=== PATIENT | male | born 2005 | race Caucasian/White ===

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

== ENCOUNTER 2024-09-22 17:56 | Inpatient (IN) ==
--- NOTE | 2024-09-22 18:40 | Emergency Department Note ---
Impression & Plan Suicidal ideation, Delusions ED Provider Note NAME: VANESSA GRECO AGE: 19 SEX: M : 2005 ARRIVES VIA: Walk-In INFORMANT: [Patient][girlfriend] ED PROVIDER(S): [Fili Casiano MD] CHIEF COMPLAINT: Mental health evaluation HISTORY OF PRESENT ILLNESS: The patient is a 19-year-old male who presents to the ER with suicidal ideation. The patient states that he has been suicidal in the past. He feels overwhelmed by his life in general. He has financial stress, stress with his living situation, he is stressed at his job. He states that he has had multiple friends who have committed suicide and, this makes him think about suicide. He did try 1 time to hang himself while in high school. He had a plan to cut himself with a knife. As per the patient's girlfriend, the patient has been somewhat delusional. He has been telling stories about people dying in his arms and about being in physical altercations and, none of these events occurred. The patient is currently voluntary. He is not on psychiatric meds. He has some reflux issues but is not currently taking anything for reflux. PMHx/PSHx/Social Hx: See Below PHYSICAL EXAM: GENERAL: Patient is in no acute distress. HEENT: No acute trauma, normocephalic atraumatic, mucous membranes moist, no nasal congestion. NECK: No stridor, no adenopathy, no meningismus, trachea is midline. LUNGS: Clear to auscultation bilaterally, no wheeze, no rhonchi, breath sounds equal. HEART: Without murmurs gallops or rubs, regular rate and rhythm. ABDOMEN: Soft, nontender, no peritonitis. EXTREMITIES: No cyanosis, full range of motion of all the joints without pain or difficulty. NEUROLOGIC: Oriented x 3, no acute motor or sensory deficits, no focal weakness. SKIN: No jaundice, no diaphoresis. Psychiatric: The patient has a somewhat flattened affect. He is voluntary, he admits to suicidal ideation with a plan to cut himself. DIFFERENTIAL DIAGNOSIS: Suicidality, psychosis, hallucinations, delusions, thyroid disorder, all others. EMERGENCY DEPARTMENT PROCEDURES: MEDICAL DECISION MAKING: There is no leukocytosis or concerning anemia. There is a normal platelet count. No renal failure or significant electrolyte abnormality. No concerning liver enzyme elevation. Patient appears to be in a euthyroid state. Urinalysis does not show findings of infection. Aspirin, Tylenol and alcohol levels are undetectable. Urine tox is positive for marijuana. COVID test is negative. On exam, the patient did admit to some suicidal ideation with a plan to harm himself. He had a flattened affect. He was voluntary. Patient was felt medically clear. He was seen by psychiatry case management. The patient was felt appropriate for our hospital's psychiatric services, [facility] The patient has been accepted to [facility] voluntarily. The appropriate paperwork was completed and signed. Patient has been very cooperative during his stay in the ED. Prior/Outside records/notes reviewed: None Imaging/x-ray results per my interpretation: Chronic Medical/Social conditions affecting care: None Care/Management discussed with: Psychiatry case management. Level of care consideration(s): After review of the information above and other included data: --I believe the patient requires escalation of care to inpatient voluntary psychiatric admission DISPOSITION: Voluntary psychiatric admission to [facility] Past Med/Surg History Problem List (Updated 09/23/24 @ 01:50 by Fili Casiano MD) Delusions (Acute) Suicidal ideation (Acute) Pain of right forearm (Acute) Injury of right wrist (Acute) Acute pain of right wrist (Acute) Scrotal pain Testicular discomfort Varicocele (Acute) Cyst of epididymis determined by ultrasound (Acute) Chronic rhinitis Left varicocele Hypothyroidism Arthralgia Anxiety and depression H/O plastic surgery Gynecomastia surgery performed at [facility] 07/13/2022 Eosinophilic esophagitis (Chronic) Vomiting (Acute) Abdominal pain (Acute) Abdominal pain (Acute) Abdominal pain (Acute) Abdominal wall contusion (Acute) Abdominal pain (Acute) Mesenteric lymphadenitis (Chronic) Medical History History of seizure as reports first 5 days of - has not had seizures since History of blood clots reports found in lower leg, approx. age 16-17, no blood thinners, told to elevate leg Chronic rhinitis History of anesthesia reaction "it takes just a little bit more to get me to sleep" pt. also reports waking up during breast surgery Cyst of epididymis determined by ultrasound Eosinophilic esophagitis Varicocele Anxiety and depression no meds Hypothyroidism Surgical History (Updated 10/21/24 @ 08:03 by Adilene Momin) Hx of wisdom tooth extraction Hx of tonsillectomy H/O bilateral breast reduction surgery Gynecomastia surgery performed at [facility] 07/13/2022 Family History Father Diabetes Other Colorectal cancer Denies family history of Prostate cancer Myocardial infarction Breast cancer Lung cancer Social History Smoking Status: Never smoker Second Hand Exposure: No; Do You Dip or Chew Tobacco: No; Hx Alcohol Use: No Hx Substance Use: No Preferred Language: Georgian Communication Ability: Effective Visual Impairment: Limited Hearing Ability: Normal 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 Beliefs That Will Affect Care: None marital status: Single Current Living Situation: Significant Other current occupational status: unemployed How many Children do You have: 0 Feels Safe at Home: Yes Childhood Exposure to Second-Hand Smoke: Yes Diet: regular caffeine: No Dental Care, Regularly: No Physical Activity Frequency: Does not Exercise Seatbelt Use: always Sunscreen Use: Yes Gender Identity: Male Assistive Devices: Glasses Allergies Allergies Allergy/AdvReac Type Severity Reaction Status Date / Time cat dander Allergy Severe Anaphylaxis Verified 07/08/24 14:05 dog dander Allergy Intermediate ITCHY Verified 07/08/24 14:05 EYES, SNEEZING, CONGESTION latex Allergy Intermediate SKIN PEELS Verified 07/08/24 14:05 OFF vancomycin Allergy Intermediate RED MAN Verified 07/08/24 14:05 SYNDROME omeprazole AdvReac Intermediate Vomiting Verified 07/08/24 14:05 guinea pig Allergy Severe Anaphylaxis Uncoded 07/08/24 14:05 HORSE HAIR Allergy Intermediate ITCHY Uncoded 07/08/24 14:05 EYES, SNEEZING, CONGESTION [place] Allergy Unknown POSITIVE Uncoded 07/08/24 14:05 ALLERGY TEST [place] Allergy Unknown POSITIVE Uncoded 07/08/24 14:05 ALLERGY TEST Home Meds Previous Rx's Medication Instructions Recorded epinephrine 0.3 mg/0.3 mL 0.3 mg (0.3 mL) IM DIRECTED PRN 01/30/24 injection, auto-injector (EpiPen) SEVERE ALLERGIC REACTION #2 ea Results & Data (ED) Vital Signs Vital Signs - 24 hr 09/22/24 18:01 09/22/24 20:31 09/22/24 22:00 Temperature 36.6 C Temperature Source Temporal Artery Scan Pulse Rate 95 H Pulse Rate [Finger] 90 89 Respiratory Rate 18 16 18 Respiratory Effort / Characteristics Non-Labored Spontaneous Non-Labored Spontaneous Non-Labored Spontaneous Respiratory Depth Normal Normal Normal Respiratory Pattern Regular Regular Regular Blood Pressure 155/102 H Blood Pressure [Right Arm] 137/73 123/73 Blood Pressure Mean 119 Blood Pressure Mean [Right Arm] 94 89 Blood Pressure Position Sitting Blood Pressure Position [Right Arm] Semi-fowlers Semi-fowlers Pulse Oximetry 97 99 97 Oxygen Delivery Method Room Air Room Air Room Air Sepsis Recent Fever Within 48 Hours No Sepsis New/Unexplained Change in Mental Status N/A Sepsis Action Taken by Nursing No Action Required 09/23/24 00:00 Temperature Temperature Source Pulse Rate Pulse Rate [Finger] 83 Respiratory Rate 16 Respiratory Effort / Characteristics Respiratory Depth Respiratory Pattern Blood Pressure Blood Pressure [Right Arm] 119/70 Blood Pressure Mean Blood Pressure Mean [Right Arm] 86 Blood Pressure Position Blood Pressure Position [Right Arm] Pulse Oximetry 98 Oxygen Delivery Method Sepsis Recent Fever Within 48 Hours Sepsis New/Unexplained Change in Mental Status Sepsis Action Taken by Shelter Medications Current Medication List: was personally reviewed by me Laboratory Data Attestation: I reviewed the patient's lab results. 09/22/24 18:36 09/22/24 18:36 Lab Results 09/22/24 Range/Units 18:36 WBC 9.58 (4.8-10.8) K/ul RBC 5.39 (4.70-6.10) M/uL Hgb 15.9 (14.0-18.0) g/dl Hct 45.1 (42.0-52.0) % MCV 83.7 (80.0-100.0) fL MCH 29.5 (25.0-34.0) pg MCHC 35.3 (32.0-36.0) g/dL RDW Std Deviation 38.7 (36.4-46.3) fL RDW Coeff of [place] 12.8 (11.5-14.5) % Plt Count 246 (130-400) K/uL MPV 11.0 (9.4-12.4) fL Immature Gran % (Auto) 1.7 % Neut % (Auto) 61.9 % Lymph % (Auto) 26.0 % [place] % (Auto) 5.7 % Eos % (Auto) 4.1 % Baso % (Auto) 0.6 % Neut # (Auto) 5.93 (1.40-6.50) K/uL Lymph # (Auto) 2.49 (1.20-3.40) K/uL [place] # (Auto) 0.55 (0.11-0.59) K/uL Eos # (Auto) 0.39 (0.00-0.50) K/uL Baso # (Auto) 0.06 (0.00-0.20) K/uL Immature Gran # (Auto) 0.16 (0.01-0.20) K/uL Sodium 140 (136-145) mmol/L Potassium 4.0 (3.5-5.1) mmol/L Chloride 108 H (98-107) mmol/L Carbon Dioxide 25 (21-32) mmol/L Anion Gap 7 (3-11) BUN 12 (6-23) mg/dl Creatinine 0.80 (0.6-1.4) mg/dl Est Cr Clr Drug Dosing 225.8 ml/min eGFR 129.93 BUN/Creatinine Ratio 15.0 (10-20) Glucose 88 (70-99(Fasting)) mg/dl Calcium 9.2 (8.6-10.3) mg/dl Total Bilirubin 0.4 (0.2-1.0) mg/dl AST 32 (13-39) U/L ALT 43 (7-52) U/L Alkaline Phosphatase 108 H (34-104) U/L Total Protein 6.9 (6.0-8.3) gm/dl Albumin 4.6 (3.4-5.0) gm/dl Globulin 2.3 L (2.5-4.0) gm/dl Albumin/Globulin Ratio 2.0 (0.9-2) TSH 3.093 (0.300-4.500) uIu/ml Urine Color Yellow Urine Appearance Clear (Clear) Urine pH 6.0 (4.5-7.5) Ur Specific [place] 1.025 (1.000-1.030) Urine Protein Negative (Negative) Urine Glucose (UA) Negative (Negative) Urine Ketones Negative (Negative) Urine Blood Negative (Negative) Urine Nitrite Negative (Negative) Urine Bilirubin Negative (Negative) Urine Urobilinogen Negative (Negative) Ur Leukocyte Esterase Negative (Negative) Salicylates < 3.0 L (3.0-30) mg/dl Urine Opiates Screen Neg (Neg) Ur Methadone, Qual Neg (Neg) Urine Fentanyl Screen Neg (Neg) Acetaminophen < 3 L (10-30) ug/ml Urine Barbiturates Neg (Neg) Ur Phencyclidine (PCP) Neg (Neg) U Amphetamin/Meth Scrn Neg (Neg) MDMA (Ecstasy) Screen Neg (Neg) U Benzodiazepines Scrn Neg (Neg) Ur Cocaine Metabolite Neg (Neg) U Marijuana (THC) Screen Pos H (Neg) Ethyl Alcohol mg/dL < 10.0 (<10.0) mg/dl SARS-CoV-2, RNA, NAAT NEGATIVE (NEGATIVE) Discharge Plan Visit Data Chief Complaint: Mental Health Evaluation Stated Complaint: MENTAL HEALTH EVALUATION ED Provider: Fili Casiano Discharge Problem: Suicidal ideation, Delusions Patient Disposition: Admitted As Inpatient Condition: Good Forms Stand Alone Forms: My [facility], Suicide Prevention Resources Prescriptions Prescriptions: No Action epinephrine [EpiPen] 0.3 mg/0.3 mL auto-injector 0.3 mg IM DIRECTED PRN (Reason: SEVERE ALLERGIC REACTION) Qty: 2 [facility] Referrals Referrals: Nirmal Draper DO [Primary Care Provider] -
[2024-09-22 18:51] LABS: Basophils # (auto) 0.06 K/uL (0.00-0.20); Basophils % (auto) 0.6 %; Eosinophils # (auto) 0.39 K/uL (0.00-0.50); Eosinophils % (auto) 4.1 %; Hematocrit (blood only) 45.1 % (42.0-52.0); Hemoglobin 15.9 g/dl (14.0-18.0); Immature Granulocytes # (auto) 0.16 K/uL (0.01-0.20); Immature Granulocytes % (auto) 1.7 %; Lymphocytes # (auto) 2.49 K/uL (1.20-3.40); Mean Corpuscular Hemoglobin 29.5 pg (25.0-34.0); Mean Corpuscular Hgb Conc 35.3 g/dL (32.0-36.0); Mean Corpuscular Volume 83.7 fL (80.0-100.0); Monocytes # (auto) 0.55 K/uL (0.11-0.59); Monocytes % (auto) 5.7 %; Neutrophils # (auto) 5.93 K/uL (1.40-6.50); Neutrophils % (auto) 61.9 %; Platelet Count 246 K/uL (130-400); RDW Coefficient of Variation 12.8 % (11.5-14.5); RDW Standard Deviation 38.7 fL (36.4-46.3); Red Blood Count 5.39 M/uL (4.70-6.10); White Blood Count 9.58 K/ul (4.8-10.8)
[2024-09-22 19:04] LABS: Appearance Urine Clear (Clear); Bilirubin Urine Negative (Negative); Blood Urine Negative (Negative); Color Urine Yellow; Glucose Urine UA Negative (Negative); Ketones Urine Negative (Negative); Leukocyte Esterase Urine Negative (Negative); Nitrite Urine Negative (Negative); Protein Urine Negative (Negative); Specific Gravity Urine 1.025 (1.000-1.030); Urobilinogen Urine Negative (Negative)
[2024-09-22 19:11] LABS: Albumin Level 4.6 gm/dl (3.4-5.0); Bilirubin,Total 0.4 mg/dl (0.2-1.0); Calcium 9.2 mg/dl (8.6-10.3); Creatinine Clr Calc Pharmacy 225.8 ml/min; Globulin 2.3 gm/dl (2.5-4.0); Total Protein 6.9 gm/dl (6.0-8.3)
[2024-09-22 19:14] LABS: Acetaminophen < 3 ug/ml (10-30); Salicylate < 3.0 mg/dl (3.0-30)
[2024-09-22 19:26] LABS: Thyroid Stimulating Hormone 3.093 uIu/ml (0.300-4.500)
[2024-09-22 19:27] LABS: Amphetamines+Metham, Urine Neg (Neg); Barbiturates, Urine Neg (Neg); Benzodiazepine, Urine Neg (Neg); Cocaine, Urine Neg (Neg); Fentanyl, Urine Neg (Neg); MDMA (Ecstacy), Urine Neg (Neg); Marijuana, Urine Pos (Neg); Methadone, Urine Neg (Neg); Opiate, Urine Neg (Neg); Phencyclidine, Urine Neg (Neg)
[2024-09-23] MEDS ORDERED: ACETAMINOPHEN 325 MG TAB PO PRN (02:29)
[2024-09-23] MEDS ORDERED: MAGNESIUM HYDROXIDE SUSP 30 ML UDC PO PRN (02:29)
[2024-09-23] MEDS ORDERED: BISMUTH SUBSALICYLATE 262 MG CHEW PO PRN (02:29)
[2024-09-23] MEDS ORDERED: hydrOXYzine HCl 25 MG TAB PO PRN (02:29)
[2024-09-23] MEDS ORDERED: SODIUM CHLORIDE 0.65% NA SOLN 45 ML (OCEAN) PRN (02:29)
[2024-09-23] MEDS ORDERED: ALUMINUM/MAGNESIUM SUSP 30 ML UDC PO PRN (02:29)
[2024-09-23] MEDS ORDERED: OLANZapine 5 MG TABLET PO PRN (02:58)
--- NOTE | 2024-09-23 09:17 | History & Physical ---
Date of Service September 23, 2024 Impression / Recommendations Impression VANESSA GRECO is a 19-year-old man who currently lives in [place] with his girlfriend and her parents, has a history of depression, and was admitted on 09/23/24 02:00 on a 201 commitment for SI with plan to cut himself. Diagnostically consistent with major depressive disorder with possible psychotic features vs bipolar affective disorder with current depressive episode vs borderline personality disorder as well as generalized anxiety disorder, and post-traumatic stress disorder (PTSD) which may be causing depersonalization and periods of hallucinations. He also reports issues with impulsivity and path ological lying which may be related to underlying trauma responses. Discussed medication treatment options in detail. Discussed risks, benefits and alternatives. Patient consented to clonidine at bedtime to target multiple symptoms including off-label for anxiety, sleep disturbances, trauma-related nightmares, and impulsivity. Reviewed side effects including but not limited to drowsiness and orthostatic hypotension/low BP/syncope. Treatment plan includes completion of symptom questionnaires for further assessment of mood and psychotic symptoms. Will obtain release of information from [employer] to review previous medication trials. Considering mood stabilizer or antipsychotic medication pending further evaluation, given previous adverse response to Zoloft and presence of psychotic symptoms. Continue inpatient psychiatric hospitalization for safety and medication initiation. Consider outpatient intensive outpatient program with focus on emotional regulation, anxiety management and potential trauma-focused therapy. Overall I spent a total of 75 minutes for this admission including review of chart records, review of labwork, direct evaluation of the patient, counseling the patient, ordering medication, risk assessment, discussion with the psychiatric liason RN and documentation in the electronic health record. (1) Depression with suicidal ideation: (2) Post traumatic stress disorder (PTSD): (3) Night terrors: (4) MAHENDRA (generalized anxiety disorder): Plan 09/23/2024: The patient was admitted to the [facility] ([facility] inpatient mental health unit) on q15 min checks (behavioral with suicide precautions) for safety. The patient will participate in group, recreational, and milieu therapies and will be offered additional individual and family sessions as clinically appropriate. -start clonidine 0.1mg HS -Symptom questionnaires: Mood Disorder Q, Fior BPD, PHQ-9, MAHENDRA-7, JORGE Inventory Assets Strengths: supportive relationships, willing to get treatment Needs: safety and stabilization, medication adjustment, additional coping skills, increased outpatient services Suicide Risk Level Suicide Risk Level: High-Moderate (q15 min suicide checks) (SI with plan and depression prior to admission but feels safe in the hospital and feels able to ask for support) Risk Factors Assessment Male: Yes : Yes Do You Have Access To A Gun?: No (guns locked in the house and he doesn't know the location only gf father) Health Problems: No Mental Health Diagnoses: Yes Substance Use Disorders: No Previous Attempt: Yes Family History of Suicide: Yes Previous Psychiatric Hospitalization: No Hopelessness: Yes Protective Factors Assessment Employed: Yes ([employer]) Stable Relationships: Yes Supportive Family: No Psychiatric History Identifying Data VANESSA GRECO is a 19-year-old man who currently lives in [place] with his girlfriend and her parents, has a history of depression, and was admitted on 09/23/24 02:00 on a 201 commitment for SI with plan to cut himself. Chief Complaint "I got really defensive". History of Present Illness He presents for psychiatric admission for worsening depression and SI with plan of cutting himself and auditory and visual hallucinations in the context of multiple psychosocial stressors including his girlfriend and her mother suggesting he move out and get his own place, reminding him of past trauma with his parents. He notes this was very triggering because "I felt unwanted" due to experiences with his parents in the past. States he "shuts down" emotionally when he feels overwhelmed and lately has been feeling "the same but worse" such as when he has nearly attempted suicide via cutting himself in the past after a friend by suicide. He continues to have SI and endorses depressive symptoms over the last few months which has been worsening. He reports a recent exacerbation of depressive symptoms over the past few months, describing feeling like he's in "purgatory" or on "autopilot." He experiences depersonalization, feeling outside his body and observing himself. He endorses depressive symptoms including tearfulness, anhedonia, decreased motivation, guilt, helplessness, low energy, and difficulty concentrating. His appetite is "normal-alli," but his sleep is disturbed by nightly nightmares. He also reports anxiety symptoms including excessive worry, restlessness, irritability, and trouble concentrating. He describes paranoid thoughts, often worrying about his girlfriend cheating or misinterpreting innocuous situations. He experiences auditory hallucinations of his own voice repeating insecurities, his parents' voices from past arguments, and his father's voice telling him to hurt himself. Visual hallucinations typically involve seeing men, which he associates with past trauma, and occasionally his father. He also reports seeing unrelated, unexplainable visions such as hands coming out of mud during a camping trip. He notes rapid mood changes and increased irritability. He experiences periods of heightened energy lasting 2-3 hours but has never gone for extended nights without sleep. He admits to lying impulsively, sometimes believing the lies afterward, which causes him distress. He endorses PTSD symptoms including intrusive memories/flashbacks, mood changes- anger/shame/numbness/detachment, hypervigilance, emotional lability, decreased concentration, decreased sleep/night terrors. He has previously been prescribed Zoloft at [place], but reports it was "awful" and "just heightens everything." He is not currently prescribed any psychiatric medications. Psychiatric ROS notable for no current nor history of symptoms of OCD nor eating disorder. History of self-harm via cutting, most recently 1.5 months ago. Sometimes can go a few days with poor sleep, when he's hearing things or seeing things and will have really high energy ("like I drank tons of caffeine") and this can last 2.5-3 hours and "then I start crashing back to my blah-ness". Past Psychiatric History Current Psychiatric Diagnosis: PTSD, anxiety, depression Outpatient Services: none Previous Psych Admissions: none Do You Have Access To A Gun?: No (guns locked in the house and he doesn't know the location only gf father) History of Previous Suicide Attempt: Yes Describe Attempts in the Past: 6-7, including by hanging Past Medication Trials: Zoloft-heightened everything, made things worse -"something for ADHD" Allergies Allergy/AdvReac Type Severity Reaction Status Date / Time cat dander Allergy Severe Anaphylaxis Verified 07/08/24 14:05 dog dander Allergy Intermediate ITCHY Verified 07/08/24 14:05 EYES, SNEEZING, CONGESTION latex Allergy Intermediate SKIN PEELS Verified 07/08/24 14:05 OFF vancomycin Allergy Intermediate RED MAN Verified 07/08/24 14:05 SYNDROME horse dander Allergy Unknown Itching, Verified 09/23/24 02:36 sneezing, congestion oak Allergy Unknown oak tree Verified 09/23/24 02:36 allergy positive on testing tree and shrub pollen Allergy Unknown positive Verified 09/23/24 02:36 allergy testing omeprazole AdvReac Intermediate Vomiting Verified 07/08/24 14:05 guinea pig Allergy Severe Anaphylaxis Uncoded 07/08/24 14:05 Home Medications Medication Instructions Recorded Confirmed Type epinephrine 0.3 mg/0.3 mL 0.3 mg (0.3 mL) IM DIRECTED PRN 01/30/24 09/22/24 Rx injection, auto-injector (EpiPen) SEVERE ALLERGIC REACTION #2 ea Family History Family History of: Depression, Anxiety, Bipolar and Suicide Completion (multiple friends ) Family Mental Health History Comment: Mom- Bipolar 1, anxiety, depression Dad- Bipolar, depression, anger Older brother- Unknown Alcohol History Hx of Alcohol Use Over the Past 12 Months: Yes (Rarely. 3 drinks per occasion) AUDIT Total Score: 2 Smoking Use Have You Smoked or Used Tobacco Products in the Last 30 Days: No Smoking Status: Former smoker Substance History Hx of Prescription Med Misuse Over the Past 12 Months: No Hx of Over the Counter Med Misuse Over the Past 12 Months: No Hx of Inhalent Misuse Over the Past 12 Months: No Hx of Organic Substance Use Over the Past 12 Months: Yes (Marijuana. 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 Other Beliefs That Will Affect Care: None Current Legal Problems: No Hx Legal Problems: No Hx Traumatic Life Events: Yes Patient History Medical History History of seizure as reports first 5 days of - has not had seizures since History of blood clots reports found in lower leg, approx. age 16-17, no blood thinners, told to elevate leg Chronic rhinitis History of anesthesia reaction "it takes just a little bit more to get me to sleep" pt. also reports waking up during breast surgery Cyst of epididymis determined by ultrasound Eosinophilic esophagitis Varicocele Anxiety and depression no meds Hypothyroidism Surgical History Hx of wisdom tooth extraction Hx of tonsillectomy H/O bilateral breast reduction surgery Gynecomastia surgery performed at [facility] 07/13/2022 Family History Father Diabetes Other Colorectal cancer Denies family history of Prostate cancer Myocardial infarction Breast cancer Lung cancer Social History Smoking Status: Former smoker Second Hand Exposure: No; Do You Dip or Chew Tobacco: No; Hx Alcohol Use: No Hx Substance Use: No Preferred Language: Syrian Communication Ability: Effective Visual Impairment: Limited Hearing Ability: Normal Director Television Required: No Beliefs That Will Affect Care: None marital status: Single Current Living Situation: Significant Other current occupational status: unemployed How many Children do You have: 0 Feels Safe at Home: Yes Childhood Exposure to Second-Hand Smoke: Yes Diet: regular caffeine: No Dental Care, Regularly: No Physical Activity Frequency: Does not Exercise Seatbelt Use: always Sunscreen Use: Yes Gender Identity: Male Assistive Devices: Glasses Review of Systems Review of Systems: All systems reviewed & are unremarkable except as noted in HPI & below Physical Exam Psychiatric: Orientation: alert and oriented x 3 Apperance: appropriately dressed and appropriately groomed Eye Contact: good eye contact Motor Behavior: no abnormal motor movements Speech: normal rate/rhythm/volume of speech Affect: + depressed affect and + constricted affect Mood: + depressed mood and + anxious mood Thought Process: + circumstantial thought process Thought Content: reality based without delusions Suicidal Thoughts: denies suicidal plan and denies suicidal intent; + reports suicidal thoughts Homicidal Thoughts: denies homicidal thoughts Hallucinations: no auditory hallucinations and no visual hallucinations Cognition: recent memory grossly intact, remote memory grossly intact, attention grossly intact and language grossly intact Estimated Intelligence: consistent with education level Insight: + fair insight Judgment: + fair judgement Vital Signs (Past 24 Hours): Last Vital Signs Temp 36.8 C 09/23/24 03:40 Pulse 81 09/23/24 03:40 Resp 18 09/23/24 03:40 BP 134/85 09/23/24 03:40 Pulse Ox 99 09/23/24 03:40 O2 Del Method Room Air 09/23/24 03:40 Exam Statement: A physical exam was performed in the ED by Dr. Casiano for the purposes of medical clearance. I accept that physical as correct and adequate for the purposes of the inpatient physical exam. Results & Data ([facility]) Laboratory Results Laboratory Results - last 24 hr 09/22/24 18:36 WBC 9.58 RBC 5.39 Hgb 15.9 Hct 45.1 MCV 83.7 MCH 29.5 MCHC 35.3 RDW Std Deviation 38.7 RDW Coeff of [place] 12.8 Plt Count 246 MPV 11.0 Immature Gran % (Auto) 1.7 Neut % (Auto) 61.9 Lymph % (Auto) 26.0 [place] % (Auto) 5.7 Eos % (Auto) 4.1 Baso % (Auto) 0.6 Neut # (Auto) 5.93 Lymph # (Auto) 2.49 [place] # (Auto) 0.55 Eos # (Auto) 0.39 Baso # (Auto) 0.06 Immature Gran # (Auto) 0.16 Sodium 140 Potassium 4.0 Chloride 108 H Carbon Dioxide 25 Anion Gap 7 BUN 12 Creatinine 0.80 Est Cr Clr Drug Dosing 225.8 eGFR 129.93 BUN/Creatinine Ratio 15.0 Glucose 88 Calcium 9.2 Total Bilirubin 0.4 AST 32 ALT 43 Alkaline Phosphatase 108 H Total Protein 6.9 Albumin 4.6 Globulin 2.3 L Albumin/Globulin Ratio 2.0 TSH 3.093 Urine Color Yellow Urine Appearance Clear Urine pH 6.0 Ur Specific [place] 1.025 Urine Protein Negative Urine Glucose (UA) Negative Urine Ketones Negative Urine Blood Negative Urine Nitrite Negative Urine Bilirubin Negative Urine Urobilinogen Negative Ur Leukocyte Esterase Negative Salicylates < 3.0 L Urine Opiates Screen Neg Ur Methadone, Qual Neg Urine Fentanyl Screen Neg Acetaminophen < 3 L Urine Barbiturates Neg Ur Phencyclidine (PCP) Neg U Amphetamin/Meth Scrn Neg MDMA (Ecstasy) Screen Neg U Benzodiazepines Scrn Neg Ur Cocaine Metabolite Neg U Marijuana (THC) Screen Pos H U Marijuana THC Carboxy Pending Drug Screen Comment Pending Ethyl Alcohol mg/dL < 10.0 SARS-CoV-2, RNA, NAAT NEGATIVE Current Inpatient Medications Current Inpatient Medications: Current Inpatient Medications Acetaminophen (Acetaminophen 325 Mg Tab) 650 mg PO Q4H PRN PRN Reason: Headache or Minor Fever Stop: 10/23/24 02:28 Al Hydrox/Mg Hydrox/Simethicone (Aluminum/Magnesium Susp 30 Ml Udc) 30 ml PO Q4H PRN PRN Reason: GI Upset Stop: 10/23/24 02:28 Bismuth Subsalicylate (Bismuth Subsalicylate 262 Mg Chew) 2 tab PO Q30M PRN PRN Reason: Loose Stool/Diarrhea Stop: 10/23/24 02:28 Hydroxyzine HCl (Hydroxyzine Hcl 25 Mg Tab) 50 mg PO HSZ PRN PRN Reason: Insomnia Stop: 10/23/24 02:28 Hydroxyzine HCl (Hydroxyzine Hcl 25 Mg Tab) 25 mg PO Q4H PRN PRN Reason: Anxiety Stop: 10/23/24 02:28 Magnesium Hydroxide (Magnesium Hydroxide Susp 30 Ml Udc) 30 ml PO DAILY PRN PRN Reason: Constipation Stop: 10/23/24 02:28 Olanzapine (Olanzapine 5 Mg Tablet) 5 mg PO HS PRN PRN Reason: Agitation/Psychosis Stop: 10/23/24 21:59 Sodium Chloride (Sodium Chloride 0.65% Na Soln 45 Ml ([place])) 1 - 2 sprays NA PRN PRN PRN Reason: Nasal Dryness/Congestion Stop: 10/23/24 02:28
[2024-09-23] MEDS: cloNIDine HCL 0.1 MG TAB PO SCH (21:12)
--- NOTE | 2024-09-24 09:21 | Psychiatric Progress Note ---
Date of Service September 24, 2024 Impression / Recommendations Impression VANESSA GRECO is a 19-year-old man who currently lives in [place] with his girlfriend and her parents, has a history of depression, and was admitted on 09/23/24 02:00 on a 201 commitment for SI with plan to cut himself. Diagnostically consistent with major depressive disorder and borderline personality disorder as well as generalized anxiety disorder, and post-traumatic stress disorder (PTSD) which may be causing depersonalization and periods of hallucinations. He also reports issues with impulsivity and pathological lying/pseudologia fantastica which may be related to underlying trauma responses. Discussed medication treatment options in detail. Discussed risks, benefits and alternatives. He consents to starting Wellbutrin to address impulsivity/MDD but will watch to ensure no worsening of internal negative self-talk or hallucinations and he consents to starting doxazosin for PTSD night terrors. Reviewed side effects including but not limited to elevated BP, increased anxiety, insomnia, decreased appetite, and counseled on black box warning of potential for emergence of or increased SI and need to let staff know should this occur or should they feel unsafe. Also discussed importance of seeking emergency care following discharge if this side effect occurs in the future with Wellbutrin and low BP/syncope with doxazosin. Symptom questionnaires consistent with MDD, MAHENDRA, high JORGE score (10/10), and BPD. Overall, I spent a total of 50 minutes on this case including meeting with the patient, reviewing the chart, nursing report, multidisciplinary team meeting, orders, and documentation. (1) Depression with suicidal ideation: (2) Post traumatic stress disorder (PTSD): (3) Night terrors: (4) MAHENDRA (generalized anxiety disorder): (5) Borderline personality disorder: Plan 09/24/2024: -Start Wellbutrin XL 150mg daily -Start doxazosin 2mg HS -Discontinue clonidine 09/23/2024: The patient was admitted to the [facility] (community hospital inpatient mental health unit) on q15 min checks (behavioral with suicide precautions) for safety. The patient will participate in group, recreational, and milieu therapies and will be offered additional individual and family sessions as clinically appropriate. -start clonidine 0.1mg HS -Symptom questionnaires: Mood Disorder Q, Fior BPD, PHQ-9, MAHENDRA-7, JORGE Inventory Assets Strengths: supportive relationships, willing to get treatment Needs: safety and stabilization, medication adjustment, additional coping skills, increased outpatient services Suicide Risk Level Suicide Risk Level: Moderate (q15 min suicide checks) (SI with plan and depression prior to admission but mood improving a bit, feels safe in the hospital and feels able to ask for support) Risk Factors Assessment Male: Yes : Yes Do You Have Access To A Gun?: No (guns locked in the house and he doesn't know the location only gf father) Health Problems: No Mental Health Diagnoses: Yes Substance Use Disorders: No Previous Attempt: Yes Family History of Suicide: Yes Previous Psychiatric Hospitalization: No Hopelessness: Yes Protective Factors Assessment Employed: Yes ([employer]) Stable Relationships: Yes Supportive Family: No Interval History Identifying Information VANESSA GRECO is a 19-year-old man who currently lives in [place] with his girlfriend and her parents, has a history of depression, and was admitted on 09/23/24 02:00 on a 201 commitment for SI with plan to cut himself. Chief Complaint "Ok". Review of Systems Sleep Information Total Hours of Sleep: 6.5 Sleep Comments: Meal Information Percent Meal Consumed - Breakfast: 50 Percent Meal Consumed - Lunch: 100 Percent Meal Consumed - Dinner: 100 Subjective Subjective Patient was seen & assessed and interval progress reviewed with treatment team. Girlfriend and mother visited and don't want him to return to their home. He was then upset and visit ended early. He had told them he was saving money to move out but instead has been buying a lot of clothing and collectables. rated his mood "1 out of 10" and described as "sh*tty". Today he reports his mood is "ok". Reviewed his symptom questionnaires, consistent with BPD, no evidence for BPAD. Very high JORGE score, discussed impact of trauma on certain symptoms. He also wonders about ADHD and we discussed how this could impact impulsivity and pseudologia fantastica. He still had nightmares overnight with clonidine, he'd like to try a different option. He thinks he's been on prazosin in the past. Physical Exam Psychiatric Orientation: alert and oriented x 3 Apperance: appropriately dressed and appropriately groomed Eye Contact: good eye contact Motor Behavior: + abnormal motor movements (possible motor tic of eye blinking) Speech: normal rate/rhythm/volume of speech Affect: + depressed affect and + constricted affect Mood: + depressed mood and + anxious mood Thought Process: + circumstantial thought process Thought Content: reality based without delusions Suicidal Thoughts: denies suicidal plan and denies suicidal intent; + reports suicidal thoughts (but lessening today) Homicidal Thoughts: denies homicidal thoughts Hallucinations: no auditory hallucinations and no visual hallucinations Cognition: recent memory grossly intact, remote memory grossly intact, attention grossly intact and language grossly intact Estimated Intelligence: consistent with education level Insight: + fair insight Judgment: + fair judgement Vital Signs (Past 24 Hours) Last Vital Signs Temp 36.7 C 09/24/24 06:25 Pulse 83 09/24/24 06:26 Resp 16 09/24/24 06:25 BP 126/77 09/24/24 06:26 Pulse Ox 99 09/23/24 03:40 O2 Del Method Room Air 09/23/24 03:40 Results & Data ([facility]) Current Inpatient Medications Current Inpatient Medications: Current Inpatient Medications Acetaminophen (Acetaminophen 325 Mg Tab) 650 mg PO Q4H PRN PRN Reason: Headache or Minor Fever Stop: 10/23/24 02:28 Al Hydrox/Mg Hydrox/Simethicone (Aluminum/Magnesium Susp 30 Ml Udc) 30 ml PO Q4H PRN PRN Reason: GI Upset Stop: 10/23/24 02:28 Bismuth Subsalicylate (Bismuth Subsalicylate 262 Mg Chew) 2 tab PO Q30M PRN PRN Reason: Loose Stool/Diarrhea Stop: 10/23/24 02:28 Clonidine HCl (Clonidine Hcl 0.1 Mg Tab) 0.1 mg PO HS ALEXA Stop: 10/23/24 21:59 Last Admin: 09/23/24 21:12 Dose: 0.1 mg Hydroxyzine HCl (Hydroxyzine Hcl 25 Mg Tab) 50 mg PO HSZ PRN PRN Reason: Insomnia Stop: 10/23/24 02:28 Hydroxyzine HCl (Hydroxyzine Hcl 25 Mg Tab) 25 mg PO Q4H PRN PRN Reason: Anxiety Stop: 10/23/24 02:28 Magnesium Hydroxide (Magnesium Hydroxide Susp 30 Ml Udc) 30 ml PO DAILY PRN PRN Reason: Constipation Stop: 10/23/24 02:28 Olanzapine (Olanzapine 5 Mg Tablet) 5 mg PO HS PRN PRN Reason: Agitation/Psychosis Stop: 10/23/24 21:59 Sodium Chloride (Sodium Chloride 0.65% Na Soln 45 Ml ([place])) 1 - 2 sprays NA PRN PRN PRN Reason: Nasal Dryness/Congestion Stop: 10/23/24 02:28 Mental Health & Subst Abuse Tx Psychiatrist Name of Psychiatrist: Kaylee Oliva with [facility] Date Of Appointment With Psychiatric Provider: 10/03/24 Time of Appointment with Psychiatrist: 11:20 am Psychiatric Appointment Comment: Arrive 15 minutes early. Please update COB with [employer] insurance. Therapist Name of Therapist: none Marketing Ambassador Name of Marketing Ambassador: none Post Discharge Appointments Primary Care Physician Name Of Family Doctor/PCP: Dr. Nirmal Raines Contact Information Discharge Discharge Address: [facility] [address], [place] [address]
[2024-09-24] MEDS: DOXAZosin MESYLATE TAB 2 MG TAB PO SCH (20:35)
[2024-09-25 06:36] VITALS: TEMP 98
[2024-09-25] MEDS: buPROPion XL 150 MG TABCR PO SCH (08:47)
--- NOTE | 2024-09-25 08:57 | Psychiatric Progress Note ---
Date of Service September 25, 2024 Impression / Recommendations Impression VANESSA GRECO is a 19-year-old man who currently lives in [place] with his girlfriend and her parents, has a history of depression, and was admitted on 09/23/24 02:00 on a 201 commitment for SI with plan to cut himself. Diagnostically consistent with major depressive disorder and borderline personality disorder as well as generalized anxiety disorder, and post-traumatic stress disorder (PTSD) which may be causing depersonalization and periods of hallucinations. He also reports issues with impulsivity and pathological lying/pseudologia fantastica which may be related to underlying trauma responses. A: Mood starting to improve, still having some instances of pathological lying- seems to be in an effort to explain past mental health struggles. Slept very well with doxazosin and tolerating Wellbutrin so far. Will continue this despite past trial given ADHD history and impulsivity and tolerating so far. Exploring options for in-person CBT/DBT intensive therapy via residential program. Completed his work FMLA/leave paperwork. Reviewed [facility] records: history of past medication trials of: -zoloft, celexa -Strattera, Cymbalta, Viloxazine -lamictal, Trileptal, Depakote -prazosin up to 5mg HS -Wellbutrin (increased anger) -Seroquel Overall, I spent a total of 60 minutes on this case including meeting with the patient, reviewing the chart, nursing report, multidisciplinary team meeting, orders, and documentation and completing work leave paperwork and reviewing external records. (1) Depression with suicidal ideation: (2) Post traumatic stress disorder (PTSD): (3) Night terrors: (4) MAHENDRA (generalized anxiety disorder): (5) Borderline personality disorder: Plan 09/25/2024: -Continue current medications and tx plan. 09/24/2024: -Start Wellbutrin XL 150mg daily -Start doxazosin 2mg HS -Discontinue clonidine 09/23/2024: The patient was admitted to the [facility] ([facility] unit) on q15 min checks (behavioral with suicide precautions) for safety. The patient will participate in group, recreational, and milieu therapies and will be offered additional individual and family sessions as clinically appropriate. -start clonidine 0.1mg HS -Symptom questionnaires: Mood Disorder Q, Fior BPD, PHQ-9, MAHENDRA-7, JORGE Inventory Assets Strengths: supportive relationships, willing to get treatment Needs: safety and stabilization, medication adjustment, additional coping skills, increased outpatient services Suicide Risk Level Suicide Risk Level: Moderate (q15 min suicide checks) (SI with plan and depression prior to admission but mood improving a bit, denies SI, feels safe in the hospital and feels able to ask for support) Risk Factors Assessment Male: Yes : Yes Do You Have Access To A Gun?: No (guns locked in the house and he doesn't know the location only gf father) Health Problems: No Mental Health Diagnoses: Yes Substance Use Disorders: No Previous Attempt: Yes Family History of Suicide: Yes Previous Psychiatric Hospitalization: No Hopelessness: Yes Protective Factors Assessment Employed: Yes ([employer]) Stable Relationships: Yes Supportive Family: No Interval History Identifying Information VANESSA GRECO is a 19-year-old man who currently lives in [place] with his girlfriend and her parents, has a history of depression, and was admitted on 09/23/24 02:00 on a 201 commitment for SI with plan to cut himself. Chief Complaint "Pretty good". Review of Systems Sleep Information Total Hours of Sleep: 6.75 Meal Information Percent Meal Consumed - Breakfast: 50 Percent Meal Consumed - Lunch: 100 Percent Meal Consumed - Dinner: 90 Subjective Subjective Patient was seen & assessed and interval progress reviewed with nursing and social work. Attending groups, flat affect but brightens at times. Rated his mood as "6" and "alright". Today reports his mood is "pretty good" he's not sure why but possibly due to sleeping really well last night. He reports last night was the first night in two years that he didn't have a nightmare or night terror. Tolerating Wellbutrin so far without any side effects. He denies current SI. He requested I complete paperwork for his work, he reports they are giving him time off and he's interested in seeking residential treatment where he can get intensive therapy of CBT and DBT. 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 When I ask him if this might be an example of one of his impulsive lies he tells me this person's heart stopped but the technology development intern were able to resuscitate and they ended up living. Physical Exam Psychiatric Orientation: alert and oriented x 3 Apperance: appropriately dressed and appropriately groomed Eye Contact: good eye contact Motor Behavior: + abnormal motor movements (possible motor tic of eye blinking) Speech: normal rate/rhythm/volume of speech Affect: + constricted affect Mood: + depressed mood and + anxious mood Thought Process: + circumstantial thought process Thought Content: reality based without delusions Suicidal Thoughts: denies suicidal thoughts, denies suicidal plan and denies suicidal intent Homicidal Thoughts: denies homicidal thoughts Hallucinations: no auditory hallucinations and no visual hallucinations Cognition: recent memory grossly intact, remote memory grossly intact, attention grossly intact and language grossly intact Estimated Intelligence: consistent with education level Insight: + fair insight Judgment: + limited judgement Vital Signs (Past 24 Hours) Last Vital Signs Temp 36.6 C 09/25/24 06:32 Pulse 76 09/25/24 06:32 Resp 16 09/25/24 06:00 BP 105/68 09/25/24 06:32 Pulse Ox 96 09/25/24 06:32 O2 Del Method Room Air 09/25/24 06:32 Results & Data ([facility]) Current Inpatient Medications Current Inpatient Medications: Current Inpatient Medications Acetaminophen (Acetaminophen 325 Mg Tab) 650 mg PO Q4H PRN PRN Reason: Headache or Minor Fever Stop: 10/23/24 02:28 Al Hydrox/Mg Hydrox/Simethicone (Aluminum/Magnesium Susp 30 Ml Udc) 30 ml PO Q4H PRN PRN Reason: GI Upset Stop: 10/23/24 02:28 Bismuth Subsalicylate (Bismuth Subsalicylate 262 Mg Chew) 2 tab PO Q30M PRN PRN Reason: Loose Stool/Diarrhea Stop: 10/23/24 02:28 Bupropion HCl (Bupropion Xl 150 Mg Tabcr) 150 mg PO QAM ALEXA Stop: 10/25/24 08:59 Last Admin: 09/25/24 08:47 Dose: 150 mg Doxazosin Mesylate (Doxazosin Mesylate Tab 2 Mg Tab) 2 mg PO HS ALEXA Stop: 10/24/24 21:59 Last Admin: 09/24/24 20:35 Dose: 2 mg Hydroxyzine HCl (Hydroxyzine Hcl 25 Mg Tab) 50 mg PO HSZ PRN PRN Reason: Insomnia Stop: 10/23/24 02:28 Hydroxyzine HCl (Hydroxyzine Hcl 25 Mg Tab) 25 mg PO Q4H PRN PRN Reason: Anxiety Stop: 10/23/24 02:28 Magnesium Hydroxide (Magnesium Hydroxide Susp 30 Ml Udc) 30 ml PO DAILY PRN PRN Reason: Constipation Stop: 10/23/24 02:28 Olanzapine (Olanzapine 5 Mg Tablet) 5 mg PO HS PRN PRN Reason: Agitation/Psychosis Stop: 10/23/24 21:59 Sodium Chloride (Sodium Chloride 0.65% Na Soln 45 Ml ([place])) 1 - 2 sprays NA PRN PRN PRN Reason: Nasal Dryness/Congestion Stop: 10/23/24 02:28 Mental Health & Subst Abuse Tx Psychiatrist [facility] Psychiatrist's Date Of Appointment With Psychiatric Provider: 10/03/24 Time of Appointment with Psychiatrist: 11:20 am Psychiatric Appointment Comment: Arrive 15 minutes early. Please update COB with [employer] insurance. Therapist Name of Therapist: none Summer Counselor Name of Summer Counselor: none Post Discharge Appointments Primary Care Physician Name Of Family Doctor/PCP: Dr. Nirmal Raines Contact Information Discharge Discharge Address: [address] [place] [address], [place] [address]
[2024-09-25 15:22] LABS: Marijuana Quant, GCMS Urine 26 ng/mL (<5)
[2024-09-25] MEDS: hydrOXYzine HCl 25 MG TAB PO PRN (21:54)
[2024-09-26 06:13] VITALS: PULSE 99; RESP 17; O2SAT 98
--- NOTE | 2024-09-26 09:18 | Psychiatric Progress Note ---
Date of Service September 26, 2024 Impression / Recommendations Impression VANESSA GRECO is a 19-year-old man who currently lives in [place] with his girlfriend and her parents, has a history of depression, and was admitted on 09/23/24 02:00 on a 201 commitment for SI with plan to cut himself. Diagnostically consistent with major depressive disorder and borderline personality disorder as well as generalized anxiety disorder, and post-traumatic stress disorder (PTSD) which may be causing depersonalization and periods of hallucinations. He also reports issues with impulsivity and pathological lying/pseudologia fantastica which may be related to underlying trauma responses. A: Mood starting to improve, still having some instances of pathological lying- seems to be in an effort to explain past mental health struggles. Slept very well with doxazosin and tolerating Wellbutrin so far. Will continue this despite past trial given ADHD history and impulsivity and tolerating so far. Exploring options for in-person CBT/DBT intensive therapy via residential program. Completed his work FMLA/leave paperwork. Reviewed [place] records: history of past medication trials of: -zoloft, celexa -Strattera, Cymbalta, Viloxazine -lamictal, Trileptal, Depakote -prazosin up to 5mg HS -Wellbutrin (increased anger) -Seroquel Overall, I spent a total of 60 minutes on this case including meeting with the patient, reviewing the chart, nursing report, multidisciplinary team meeting, orders, and documentation and completing work leave paperwork and reviewing external records. (1) Depression with suicidal ideation: (2) Post traumatic stress disorder (PTSD): (3) Night terrors: (4) MAHENDRA (generalized anxiety disorder): (5) Borderline personality disorder: Plan 09/25/2024: -Continue current medications and tx plan. 09/24/2024: -Start Wellbutrin XL 150mg daily -Start doxazosin 2mg HS -Discontinue clonidine 09/23/2024: The patient was admitted to the [facility] ([facility]) on q15 min checks (behavioral with suicide precautions) for safety. The patient will participate in group, recreational, and milieu therapies and will be offered additional individual and family sessions as clinically appropriate. -start clonidine 0.1mg HS -Symptom questionnaires: Mood Disorder Q, Fior BPD, PHQ-9, MAHENDRA-7, JORGE Inventory Assets Strengths: supportive relationships, willing to get treatment Needs: safety and stabilization, medication adjustment, additional coping skills, increased outpatient services Suicide Risk Level Suicide Risk Level: Moderate (q15 min suicide checks) (SI with plan and depression prior to admission but mood improving a bit, denies SI, feels safe in the hospital and feels able to ask for support) Risk Factors Assessment Male: Yes : Yes Do You Have Access To A Gun?: No (guns locked in the house and he doesn't know the location only gf father) Health Problems: No Mental Health Diagnoses: Yes Substance Use Disorders: No Previous Attempt: Yes Family History of Suicide: Yes Previous Psychiatric Hospitalization: No Hopelessness: Yes Protective Factors Assessment Employed: Yes ([employer]) Stable Relationships: Yes Supportive Family: No Interval History Identifying Information VANESSA GRECO is a 19-year-old man who currently lives in [place] with his girlfriend and her parents, has a history of depression, and was admitted on 09/23/24 02:00 on a 201 commitment for SI with plan to cut himself. Chief Complaint "[]". Review of Systems Sleep Information Total Hours of Sleep: 6.75 Meal Information Percent Meal Consumed - Breakfast: 90 Percent Meal Consumed - Lunch: 100 Percent Meal Consumed - Dinner: 100 Subjective Subjective Patient was seen & assessed and interval progress reviewed with treatment team. Attending groups. Rated his mood as "embarrassed" due to his lying. Physical Exam Vital Signs (Past 24 Hours) Last Vital Signs Temp 36.6 C 09/26/24 06:00 Pulse 99 H 09/26/24 06:13 Resp 17 09/26/24 06:00 BP 135/83 09/26/24 06:13 Pulse Ox 98 09/26/24 06:00 O2 Del Method Room Air 09/26/24 06:00 Results & Data ([facility]) Laboratory Results Laboratory Results - last 24 hr 09/22/24 18:36 U Marijuana THC Carboxy 26 H Drug Screen Comment SEE NOTE Current Inpatient Medications Current Inpatient Medications: Current Inpatient Medications Acetaminophen (Acetaminophen 325 Mg Tab) 650 mg PO Q4H PRN PRN Reason: Headache or Minor Fever Stop: 10/23/24 02:28 Al Hydrox/Mg Hydrox/Simethicone (Aluminum/Magnesium Susp 30 Ml Udc) 30 ml PO Q4H PRN PRN Reason: GI Upset Stop: 10/23/24 02:28 Bismuth Subsalicylate (Bismuth Subsalicylate 262 Mg Chew) 2 tab PO Q30M PRN PRN Reason: Loose Stool/Diarrhea Stop: 10/23/24 02:28 Bupropion HCl (Bupropion Xl 150 Mg Tabcr) 150 mg PO QAM ALEXA Stop: 10/25/24 08:59 Last Admin: 09/26/24 08:44 Dose: 150 mg Doxazosin Mesylate (Doxazosin Mesylate Tab 2 Mg Tab) 2 mg PO HS ALEXA Stop: 10/24/24 21:59 Last Admin: 09/25/24 21:33 Dose: 2 mg Hydroxyzine HCl (Hydroxyzine Hcl 25 Mg Tab) 50 mg PO HSZ PRN PRN Reason: Insomnia Stop: 10/23/24 02:28 Last Admin: 09/25/24 21:54 Dose: 50 mg Hydroxyzine HCl (Hydroxyzine Hcl 25 Mg Tab) 25 mg PO Q4H PRN PRN Reason: Anxiety Stop: 10/23/24 02:28 Magnesium Hydroxide (Magnesium Hydroxide Susp 30 Ml Udc) 30 ml PO DAILY PRN PRN Reason: Constipation Stop: 10/23/24 02:28 Olanzapine (Olanzapine 5 Mg Tablet) 5 mg PO HS PRN PRN Reason: Agitation/Psychosis Stop: 10/23/24 21:59 Sodium Chloride (Sodium Chloride 0.65% Na Soln 45 Ml ([place])) 1 - 2 sprays NA PRN PRN PRN Reason: Nasal Dryness/Congestion Stop: 10/23/24 02:28 Mental Health & Subst Abuse Tx Psychiatrist Name of Psychiatrist: [facility] with Stephani Hardin Psychiatrist's Date Of Appointment With Psychiatric Provider: 10/03/24 Time of Appointment with Psychiatrist: 11:20 am Psychiatric Appointment Comment: Arrive 15 minutes early. Please update COB with [place] insurance. Therapist Name of Therapist: none Undercollar Baster Name of Undercollar Baster: none Post Discharge Appointments Primary Care Physician Name Of Family Doctor/PCP: Dr. Nirmal Raines Contact Information Discharge Discharge Address: [address] [place] [address]
--- NOTE | 2024-09-26 13:44 | Discharge Summary ---
Date of Service September 26, 2024 History of Present Illness He presents for psychiatric admission for worsening depression and SI with plan of cutting himself and auditory and visual hallucinations in the context of multiple psychosocial stressors including his girlfriend and her mother suggesting he move out and get his own place, reminding him of past trauma with his parents. He notes this was very triggering because "I felt unwanted" due to experiences with his parents in the past. States he "shuts down" emotionally when he feels overwhelmed and lately has been feeling "the same but worse" such as when he has nearly attempted suicide via cutting himself in the past after a friend by suicide. He continues to have SI and endorses depressive symptoms over the last few months which has been worsening. He reports a recent exacerbation of depressive symptoms over the past few months, describing feeling like he's in "purgatory" or on "autopilot." He experiences depersonalization, feeling outside his body and observing himself. He endorses depressive symptoms including tearfulness, anhedonia, decreased motivation, guilt, helplessness, low energy, and difficulty concentrating. His appetite is "normal-alli," but his sleep is disturbed by nightly nightmares. He also reports anxiety symptoms including excessive worry, restlessness, irritability, and trouble concentrating. He describes paranoid thoughts, often worrying about his girlfriend cheating or misinterpreting innocuous situations. He experiences auditory hallucinations of his own voice repeating insecurities, his parents' voices from past arguments, and his father's voice telling him to hurt himself. Visual hallucinations typica lly involve seeing men, which he associates with past trauma, and occasionally his father. He also reports seeing unrelated, unexplainable visions such as hands coming out of mud during a camping trip. He notes rapid mood changes and increased irritability. He experiences periods of heightened energy lasting 2-3 hours but has never gone for extended nights without sleep. He admits to lying impulsively, sometimes believing the lies afterward, which causes him distress. He endorses PTSD symptoms including intrusive memories/flashbacks, mood changes- anger/shame/numbness/detachment, hypervigilance, emotional lability, decreased concentration, decreased sleep/night terrors. He has previously been prescribed Zoloft at [place], but reports it was "awful" and "just heightens everything." He is not currently prescribed any psychiatric medications. Psychiatric ROS notable for no current nor history of symptoms of OCD nor eating disorder. History of self-harm via cutting, most recently 1.5 months ago. Sometimes can go a few days with poor sleep, when he's hearing things or seeing things and will have really high energy ("like I drank tons of caffeine") and this can last 2.5-3 hours and "then I start crashing back to my blah-ness". Physical Exam Vital Signs (Past 24 Hours) Last Vital Signs Temp 36.6 C 09/26/24 06:00 Pulse 99 H 09/26/24 06:13 Resp 17 09/26/24 06:00 BP 135/83 09/26/24 06:13 Pulse Ox 98 09/26/24 06:00 O2 Del Method Room Air 09/26/24 06:00 Principal Diagnosis Major Depressive Disorder Psychiatric Data See daily stay summary. In short, patient was engaged with the social/therapeutic milieu of the unit, safety was maintained and the patient was cooperative with care. Medication changes included initiation of doxazosin 2mg HS for night-terrors and Wellbutrin XL 150mg daily for MDD and suspected ADHD with impulsivity and they tolerated this well. A support session was held and safety plan was completed prior to discharge. They participated in safety planning and in discussions about ways to seek support and recognizing warning signs and utilizing coping skills. Reviewed ways to have their safety plan and contacts easily available should thoughts of SI re-emerge in the future. Reviewed importance of seeking emergency care should SI intensify, worsen or should they feel unsafe in the future which they agree to do. On the day of discharge they stated their mood was "good after talking earlier" and remained future-oriented including attending residential treatment to focus on building more coping skills and reduce his impulsive lying and engaging in aftercare appointments for case management and potentially further IOP via [facility] if needed after residential treatment. Day of Discharge Assessment Today the patient voices readiness for discharge. They note improvement in mood and anxiety. They deny thoughts of harm to self or others. Thoughts are organized and they are clinically improved from admission. There is no evidence of psychosis. They improved in the hospital with support and medication adjustments. They agree to take medications as prescribed and keep follow-up appointments. At the time of the discharge they are deemed to be stable and appropriate for outpatient level of care. They are not deemed to be at imminent risk of harm to self or others. They are aware of emergency and crisis services. Knows to call 911 or go to nearest emergency care center if in a crisis which cannot be handled as an outpatient. Suicide risk assessment: Acute risk is low given improvement in mood and denial of SI, lack of access to lethal means, improvement in sleep, hopefulness. Chronic risk is moderate given some non-modifiable risk factors: psychiatric co-morbid diagnoses, periods of impulsivity, prior attempt, emotional reactivity, cluster B personality disorder, childhood trauma and family history of by suicide but also with protective factors including employed, good social support, sense of responsibility to family and social supports, outpatient care in place, positive coping skills, positive problem solving, willingness to engage with treatment and self-observation. Counseled on ways to reduce acute and chronic risk including engaging with outpatient providers, using safety plan if needed, utilizing supports, taking medication, and using coping skills. Modifiable risk factors of SI, night terrors and depression were addressed during hospitalization through development of new coping skills, support meeting, safety planning, and medication adjustments. Discharge physical exam: See admission H&P, MSE per above and day of discharge summary. Overall, I spent a total of 55 minutes on this case including meeting with the patient, reviewing the chart, nursing report, multidisciplinary team meeting, discharge orders, anticipatory planning, safety planning, risk assessment and documentation. Transition of Care Transition Of Care Record: was reviewed with the patient Advance Directives Advance Directives Information Provided: Yes Advance Directives: No Mental Health Advance Directive: No Advance Directives on File: No Living Will: No Power of Costume Seamstress: No Advance Directives Reason:: Declines as Mental Health Visit. Suicide Risk Level Suicide Risk Level Comments: Acute risk is low given denial of SI and future-oriented, see further assessment above Risk Factors Assessment Male: Yes : Yes Do You Have Access To A Gun?: No (guns locked in the house and he doesn't know the location only gf father) Health Problems: No Mental Health Diagnoses: Yes Substance Use Disorders: No Previous Attempt: Yes Family History of Suicide: Yes Previous Psychiatric Hospitalization: No Hopelessness: No Protective Factors Assessment Employed: Yes ([employer]) Stable Relationships: Yes Supportive Family: No Discharge Data Lab Results 09/22/24 18:36 WBC 9.58 RBC 5.39 Hgb 15.9 Hct 45.1 MCV 83.7 MCH 29.5 MCHC 35.3 RDW Std Deviation 38.7 RDW Coeff of Ector 12.8 Plt Count 246 MPV 11.0 Immature Gran % (Auto) 1.7 Neut % (Auto) 61.9 Lymph % (Auto) 26.0 [place] % (Auto) 5.7 Eos % (Auto) 4.1 Baso % (Auto) 0.6 Neut # (Auto) 5.93 Lymph # (Auto) 2.49 [place] # (Auto) 0.55 Eos # (Auto) 0.39 Baso # (Auto) 0.06 Immature Gran # (Auto) 0.16 Sodium 140 Potassium 4.0 Chloride 108 H Carbon Dioxide 25 Anion Gap 7 BUN 12 Creatinine 0.80 Est Cr Clr Drug Dosing 225.8 eGFR 129.93 BUN/Creatinine Ratio 15.0 Glucose 88 Calcium 9.2 Total Bilirubin 0.4 AST 32 ALT 43 Alkaline Phosphatase 108 H Total Protein 6.9 Albumin 4.6 Globulin 2.3 L Albumin/Globulin Ratio 2.0 TSH 3.093 Urine Color Yellow Urine Appearance Clear Urine pH 6.0 Ur Specific Anderson 1.025 Urine Protein Negative Urine Glucose (UA) Negative Urine Ketones Negative Urine Blood Negative Urine Nitrite Negative Urine Bilirubin Negative Urine Urobilinogen Negative Ur Leukocyte Esterase Negative Salicylates < 3.0 L Urine Opiates Screen Neg Ur Methadone, Qual Neg Urine Fentanyl Screen Neg Acetaminophen < 3 L Urine Barbiturates Neg Ur Phencyclidine (PCP) Neg U Amphetamin/Meth Scrn Neg MDMA (Ecstasy) Screen Neg U Benzodiazepines Scrn Neg Ur Cocaine Metabolite Neg U Marijuana (THC) Screen Pos H U Marijuana THC Carboxy 26 H Drug Screen Comment SEE NOTE Ethyl Alcohol mg/dL < 10.0 SARS-CoV-2, RNA, NAAT NEGATIVE Hospital Course (1) Depression with suicidal ideation: (2) Post traumatic stress disorder (PTSD): (3) Night terrors: (4) MAHENDRA (generalized anxiety disorder): (5) Borderline personality disorder: (6) Major depressive disorder, recurrent episode with atypical features: Plan 09/26/2024: Accepted to the [facility] for residential treatment to focus on builiding more coping skills. He feels safe and ready to leave and is looking forward to this next stage of treatment. Continues to tolerate medications without any side effects. 09/25/2024: -Continue current medications and tx plan. 09/24/2024: -Start Wellbutrin XL 150mg daily -Start doxazosin 2mg HS -Discontinue clonidine 09/23/2024: The patient was admitted to the [facility] ([facility] unit) on q15 min checks (behavioral with suicide precautions) for safety. The patient will participate in group, recreational, and milieu therapies and will be offered additional individual and family sessions as clinically appropriate. -start clonidine 0.1mg HS -Symptom questionnaires: Mood Disorder Q, Fior BPD, PHQ-9, MAHENDRA-7, JORGE Mental Health & Subst Abuse Tx Psychiatrist Name of Psychiatrist: [facility] with Stephani Hardin Psychiatrist's Date Of Appointment With Psychiatric Provider: 10/03/24 Time of Appointment with Psychiatrist: 11:20 am Psychiatric Appointment Comment: Arrive 15 minutes early. Please update COB with [employer] insurance. Therapist Name of Therapist: none Shampoo Assistant Name of Shampoo Assistant: none Post Discharge Appointments Primary Care Physician Name Of Family Doctor/PCP: Dr. Nirmal Raines Other #1: Name of Aftercare Appointment: [facility] Case Management Phone Number of Aftercare Appointment: Aftercare Appointment Comment: Contact your CM after discharge Contact Information Discharge Discharge Address: [address] [place] [id number] Discharge Plan Discharge Items Patient Disposition: Home - Self-Care Reason For Visit: UNSPECIFIED MOOD DISORDER Discharge Diagnosis: Major Depressive Disorder Condition on Discharge: Good Activity: Resume your previous activity Non-emergency contact: Primary Care Provider and [employer] Call non-emergency contact if: you have any medication questions and your symptoms worsen Follow-up/Referrals: Nirmal Draper DO [Primary Care Provider] - Diet: Regular Addtl Attending Provider Instructions: Optional mobile apps: -Suicide safety plan -Virtual Hope Box SPECIAL CARE INSTRUCTIONS: 1. Follow through with your scheduled aftercare appointments. If unable to keep an appointment, please call to reschedule. 2. Take your medication only as prescribed. Medication should not be changed or stopped without the approval of your doctor. In the event of worsening symptoms or concerns about side effects, contact your doctor immediately. 3. Utilize new healthy coping skills, anger management skills, and stress management skills learned during your hospitalization. Journal feelings and process them with a support person. Identify stressors or situations that may result in relapse, deterioration or inappropriate behaviors and develop a plan to deal with those issues. 4. If your coping skills are ineffective and you are in crisis, contact your outpatient providers for direction. If unable to reach your providers, please call the [facility] CRISIS LINE AT , go to the [facility] walk-in center at [address], [address], [place], or go to the closest Emergency Room. 5. Avoid alcohol and un-prescribed drugs. 6. You have been provided with the Mental Health Advance Directives Pamphlet for your review. 7. Your condition is stable for discharge to outpatient level of care, but recovery is an ongoing process. Ifthoughts to harm yourself or others return, follow the safety plan developed during your stay. Planning for a safe return home includes securing weapons. Our treatment team recommends weaponsbe removed from the home until your outpatient provider reassesses your progress. In rare cases where the items themselvescannot be removed, guns and ammunitionshould be secured separatelyand keys stored by a reliable personoutside of the home. If you were admitted on an involuntary commitment, the police or other legal authorities may be involved in this process. AFTERCARE APPOINTMENTS: * Please call your insurance company prior to your scheduled appointment to confirm your aftercare providers are covered. Take your insurance information to your appointments. WHO TO CALL AND WHEN: Medical Emergencies: For questions or emergencies related to your hospital stay, please contact the Inpatient Behavioral Health Unit at [phone]. A hand violin maker is on-call 01/01 for the Behavioral Health Unit for emergencies At any time you feel your situation is an emergency, you may also call 911 immediately. National Crisis Hotline: 988 Pending Studies at Discharge: No Stand-Alone Forms: My [facility] Medications and DC Order Prescriptions: New doxazosin 2 mg Tablet 2 mg PO HS 30 Days Qty: 30 0RF bupropion HCl 150 mg Tablet Extended Release 24 Hr 150 mg PO QAM 30 Days Qty: 30 0RF hydroxyzine HCl 50 mg tablet 50 mg PO HS PRN (Reason: insomnia/anxiety) 30 Days Qty: 30 0RF Continued epinephrine [EpiPen] 0.3 mg/0.3 mL auto-injector 0.3 mg IM DIRECTED PRN (Reason: SEVERE ALLERGIC REACTION) Qty: 2 3RF Discharge Orders: Discharge Order (Routine); Ordered 09/26/24 Ordered By: Dipti Jimenez Admission Data Admit Date/Time: 09/23/24 02:00 Attending Provider: Dipti Jimenez Admit Provider: Dipti Jimenez Primary Care Provider: Nirmal Draper Coding Level of Care Code 22877 D/C day mgmt > 30 min Diagnoses Depression with suicidal ideation F32.A; R45.851 Post traumatic stress disorder (PTSD) F43.10 Night terrors F51.4 MAHENDRA (generalized anxiety disorder) F41.1 Borderline personality disorder F60.3 Major depressive disorder, recurrent episode with atypical features F33.9
[2024-09-26 14:06] VITALS: BP 142/84
== END 2024-09-26 15:00 | disposition home or self-care (01) | DRG 885 ==
LOC: ED 17:56 → 3S 09-23 02:00
DX: F41.1 Generalized anxiety disorder; Z11.52 Encounter for screening for COVID-19; F60.3 Borderline personality disorder; R45.851 Suicidal ideations; F33.9 Major depressive disorder, recurrent, unspecified; Z88.8 Allergy status to other drugs, medicaments and biological substances; Z56.0 Unemployment, unspecified; F43.10 Post-traumatic stress disorder, unspecified; F51.4 Sleep terrors [night terrors]; Z91.040 Latex allergy status